=== PATIENT | male | born 1980 | race Caucasian/White ===

== ENCOUNTER 2017-08-12 16:29 | Outpatient (CLI) | payer OTHER ==
--- NOTE | 2017-08-12 22:03 | MRI Report ---
EXAM: LEFT KNEE MRI WITHOUT CONTRAST EXAM DATE: 08/12/2017 05:31 p.m. CLINICAL HISTORY: Left knee pain and locking. Previous meniscal tear surgery over 15 years ago. COMPARISON: None. TECHNIQUE: Multiplanar, multisequence T1-weighted and fluid-sensitive sequences of the knee without c ontrast. Other: None. FINDINGS: Bones and articular cartilage: Focal subcortical marrow edema and grade 2 chondromalacia at the media l aspect of the medial tibial plateau. Grade 2 chondromalacia at the medial femoral condyle. No acute fracture or bone lesions. Small marginal osteophytes at the medial femoral condyle, medial tibial pl ateau, and lateral tibial plateau. Medial Meniscus: Part of the posterior horn and body of the medial meniscus is absent which may be du e to a previous partial meniscectomy or degeneration. There is a horizontal tear within the remaining medial meniscus. Lateral Meniscus: Part of the posterior horn is absent which may be due to degeneration or a previous partial meniscectomy. No definite tear within the remaining lateral meniscus. Cruciate Ligaments: The anterior cruciate ligament is not seen as a distinct structure. The posterior cruciate ligament is intact. Collateral Ligaments: The medial collateral and lateral collateral ligamentous structures are intact. Tendons: The quadriceps, patellar, semimembranosus, and popliteus tendons are unremarkable. Musculature: No edema or fatty atrophy. Other: No effusion. Small Be's cyst. No loose bodies. The medial and lateral retinacula are intac t. Scar tissue at the infrapatellar fat pad. IMPRESSION: 1. 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 2. Partial absence of the posterior horn and body of the medial meniscus which may be due to a previo us partial meniscectomy or degeneration. There is a horizontal tear within the remaining medial menis cus. 3. Partial absence of the posterior horn lateral meniscus which may be due to degeneration or a previ ous partial meniscectomy. No definite tear within the remaining lateral meniscus. 4. Chronic ACL tear and ACL deficient knee. 5. Small Be's cyst. [facility] MUSCULOSKELETAL RADIOLOGY SECTION Referring Provider Line: [phone] SITE ID: [id number]
== END 2017-08-12 16:30 | disposition home or self-care (01) ==
LOC: DI 16:29
PROVIDERS: ATTEND Student in an Organized Health Care Education/Training Program
DX: M94.262 Chondromalacia, left knee (principal); S83.242A Other tear of medial meniscus, current injury, left knee, initial encounter; M71.22 Synovial cyst of popliteal space [Baker], left knee; S83.512A Sprain of anterior cruciate ligament of left knee, initial encounter

== ENCOUNTER 2019-09-06 07:30 | Inpatient (IN) | payer OTHER ==
[2019-10-03] MEDS ORDERED: CEFAZOLIN SODIUM IN 0.9 % NACL 0 GM/0 ML BAG IV ONE (06:30)
[2019-10-03] MEDS ORDERED: LACTATED RINGERS 1,000 ML IV ONE (06:45)
[2019-10-03 06:53] VITALS: BP 123/86
[2019-10-03] MEDS ORDERED: BUPIVACAINE 0.25% PF 30 ML VIAL ONE (07:09)
[2019-10-03] MEDS ORDERED: EPINEPHrine 1 MG/ML AMP ONE (07:09)
--- NOTE | 2019-10-03 07:20 | ANESTHESIA ---
Pre-Anesthesia VS, & Labs - Diagnosis genu varus - Procedure left high tibial osteotomy Vital Signs: Temp Pulse Resp BP Pulse Ox 36.4 C L 63 16 123/86 H 98 10/03/19 06:46 10/03/19 06:46 10/03/19 06:46 10/03/19 06:46 10/03/19 06:46 Height 5 ft 8 in Weight (kg) 78.02 kg - NPO >8 hours Home Medications and Allergies Home Medications: Ambulatory Orders Sertraline HCl [Zoloft] 150 mg PO DAILY 09/16/19 hydrOXYzine HCl [Hydroxyzine HCl] 25 mg PO ONCE 09/16/19 Sertraline HCl [Zoloft] 150 mg PO DAILY 09/16/19 hydrOXYzine HCl [Hydroxyzine HCl] 25 mg PO ONCE 09/16/19 Allergies/Adverse Reactions: Allergies Allergy/AdvReac Type Severity Reaction Status Date / Time No Known Drug Allergies Allergy Verified 10/03/19 07:04 Anes History & Medical History - Anesthetic History Anesthesia Complications: reports: Post-Operative Nausea/Vomiting - Medical History Cardiovascular: reports: None Pulmonary: reports: None Gastrointestinal: reports: None Urinary: reports: None Musculoskeletal: reports: Other Endocrine/Autoimmune: reports: None Skin: reports: None - Surgical History Eyes Ears Nose Throat (EENT): Tonsil/Adenoidectomy Orthopedic: Arthroscopic surgery Exam General: Alert Dental: WNL Mouth Opening: Greater than 4 Fingerbreadths Neck Mobility: Normal Mallampati classification: II Thyromental Distance: greater than 6 cm Respiratory: Lungs clear Cardiovascular: Regular rate, Normal S1, Normal S2 Mental/Cognitive Status: Alert/Oriented X3 Plan Anesthesia Type: General Consent for Procedure(s) Verified and Reviewed: Yes Code Status: Attempt Resuscitation ASA classification: 2-Mild systemic disease Is this case an emergency?: No
[2019-10-03] MEDS ORDERED: SCOPOLAMINE PATCH TOP ONE (07:25)
--- NOTE | 2019-10-03 10:15 | PHARMACY PROGRESS NOTE ---
- Best Possible Medication History Admit Date and Time: 10/03/19 0559 Processed by: Nursing Medication History completed: Yes As the person ultimately responsible for medication therapy, providers are able to order a medication from an existing home medication list in [facility] via the "Reconcile Routine" prior to Confirmation of that medication by client support coordinator. Such practice is discouraged except when the physician, in their clinical judgment, deems that a medical need exists for a medication without regard to previous use.
== END 2019-10-03 08:04 | disposition home or self-care (01) | DRG 566 ==
LOC: MS3 10-03 05:59
PROVIDERS: ADMIT Orthopaedic Surgery; ATTEND Orthopaedic Surgery
DX: M21.169 Varus deformity, not elsewhere classified, unspecified knee (principal); Z53.8 Procedure and treatment not carried out for other reasons

== ENCOUNTER 2019-10-15 11:02 | Inpatient (IN) | payer OTHER ==
[~2019-10-15 11:02] MED LIST: CEFAZOLIN SODIUM IN 0.9 % NACL 2 GM/100 ML BAG IV ONE; DEXAMETHASONE 4 MG/ML VIAL IVP ONE; HYDROmorphone 1 MG/ML CARPUJECT IVP ONE; LIDOCAINE 2% 10 ML MDV SUBQ ONE; MIDAZOLAM 2 MG/2 ML VIAL IVP ONE; ONDANSETRON 4 MG/2 ML VIAL IVP ONE; PROPOFOL 200 MG/20 ML VIAL IVP ONE; ROCURONIUM 50 MG/5 ML VIAL IVP ONE; ePHEDrine 50 MG/ML VIAL IVP ONE; fentaNYL 100 MCG/2 ML VIAL IVP ONE
[2019-10-15] MEDS ORDERED: LACTATED RINGERS 1,000 ML IV ONE ×2 (11:08→13:56)
[2019-10-15] MEDS ORDERED: EPINEPHrine 1 MG/ML AMP ONE (12:15)
[2019-10-15] MEDS ORDERED: SCOPOLAMINE PATCH TOP ONE (12:25)
[2019-10-15] MEDS: BUPIVACAINE 0.25% PF 30 ML VIAL ONE ×2 (13:37→16:41)
--- NOTE | 2019-10-15 19:48 | XRAY Report ---
Reason: left tibial osteotomy Procedure Date: 10/15/2019 Accession Number: [id number] / [id number] Procedure: FL - OR C-Arm Procedure CPT Code: Final Report FULL RESULT: EXAM: FLUOROSCOPIC GUIDANCE EXAM DATE: 10/15/2019 04:59 PM. CLINICAL HISTORY: Left tibial osteotomy. COMPARISON: None. FINDINGS: Several intraoperative fluoroscopic spot images demonstrate a tibial osteotomy. There is also moderate medial and mild lateral compartment osteoarthritis. No obvious displaced acute fracture. IMPRESSION: Fluoroscopic guidance provided for left tibial osteotomy.. Total fluoroscopy time: 0.7 minutes. Number of images: 20. RADIA
[2019-10-15] MEDS ORDERED: ceFAZolin 2 GM in SODIUM CHLORIDE 0.9% 100ML 100 ML IV ONE (20:18)
[2019-10-15] MEDS ORDERED: ACETAMINOPHEN 325 MG TABLET PO PRN (20:18)
[2019-10-15] MEDS ORDERED: ONDANSETRON 4 MG/2 ML VIAL IVP PRN (20:20)
[2019-10-15] MEDS ORDERED: SODIUM CHLORIDE FLUSH 0.9% 10 ML SYRINGE IVP PRN (20:22)
[2019-10-15] MEDS ORDERED: PROCHLORPERAZINE 10 MG/2 ML VIAL IVP PRN (20:22)
[2019-10-15] MEDS: oxyCODONE 5 MG TABLET PO PRN (20:43)
[2019-10-15] MEDS ORDERED: ACETAMINOPHEN 1,000 MG/100 ML 100 ML IV PRN (20:44)
[2019-10-15] MEDS: SODIUM CHLORIDE FLUSH 0.9% 10 ML SYRINGE IVP SCH (21:40)
[2019-10-16] MEDS: oxyCODONE 5 MG TABLET PO PRN ×5 (00:38→19:38)
[2019-10-16] MEDS ORDERED: ceFAZolin 2 GM in SODIUM CHLORIDE 0.9% 100ML 100 ML IV ONE (05:00)
[2019-10-16] MEDS ORDERED: DOCUSATE SODIUM 250 MG CAPSULE PO SCH (09:00)
[2019-10-16] MEDS: POLYETHYLENE GLYCOL 3350 17 GM PACKET PO SCH (09:45)
[2019-10-16] MEDS: SERTRALINE 50 MG TABLET PO SCH (10:29)
--- NOTE | 2019-10-16 12:07 | PHARMACY PROGRESS NOTE ---
- Best Possible Medication History Admit Date and Time: 10/15/19 1230 Processed by: Pharmacy Medication History completed: Yes Patient Interview: Completed Secondary Source(s): Insurance records As the person ultimately responsible for medication therapy, providers are able to order a medication from an existing home medication list in [facility] via the "Reconcile Routine" prior to Confirmation of that medication by cell support operator. Such practice is discouraged except when the physician, in their clinical judgment, deems that a medical need exists for a medication without regard to previous use.
[2019-10-16] MEDS: MORPHINE 2 MG/ML CARPUJECT IVP PRN ×3 (12:17→21:45)
[2019-10-16] MEDS: SODIUM CHLORIDE FLUSH 0.9% 10 ML SYRINGE IVP SCH ×4 (12:18→21:45)
[2019-10-17] MEDS: oxyCODONE 5 MG TABLET PO PRN ×4 (00:23→12:21)
[2019-10-17] MEDS: SODIUM CHLORIDE FLUSH 0.9% 10 ML SYRINGE IVP SCH (00:27)
--- NOTE | 2019-10-17 07:52 | PROVIDER PROGRESS NOTE ---
Subjective - General Admit Date: 10/15/19 Procedure Date: 10/15/19 Post Op Days: 2 Procedure Performed: Left proximal tibia valgus producing osteotomy. Left knee arthroscopy - Review of Systems Wound/Incisions: positive: Dressing dry and intact General: positive: No symptoms HEENT: positive: No symptoms Pulmonary: positive: No symptoms Cardiovascular: positive: No symptoms Gastrointestinal: positive: No symptoms Genitourinary: positive: Retention (Improved. Now urinating without issue) Musculoskeletal: positive: Other (Left leg pain is tolerable with PO medications. Pain is at the surgical site. There is no compartment syndrome type pain.) Skin: positive: No symptoms - Other Other Information/Narrative: S: POD #2 s/p L proximal tibial osteotomy and knee arthroscopy with debridement. He has been in the hospital for pain control and relative urinary retention. His urinary hesitency has resolved. His pain continues but is tolerable with oral medications. He has been crutching around the room. He denies f/c/s. His contralateral limb has been itchy. O: Well appearing in no distress. His dressing is intact without drainage. The HAILEY wrap is in place. Compartments are soft and nontender to the touch. There is no calf pain with passive stretch of the compartments. He has active ROM of the ankle that is normal. Knee brace is on and functioning. There is normal sensation in the saphenous, sural, superficial peroneal distributions. There is a 2+ dorsalis pedis pulse. A: Doing well postop day 2. He is now stabilized for discharge home. P: Discharge to home today. Discharge instructions have the details of his postoperative plan. His postoperative visit is on 29 October. Objective - Patient Data Vital Signs: Vital Signs x48h Temp Pulse Resp BP Pulse Ox 10/17/19 00:00 37.3 C 77 18 139/74 H 92 Weight: Weight 10/15/19 10/16/19 10/17/19 23:59 23:59 23:59 Weight (kg) 78 kg Intake & Output: Intake and Output Totals x24h 10/15/19 10/16/19 10/17/19 23:59 23:59 23:59 Intake Total 1750 3100 490 Output Total 200 4000 1500 Balance 1550 -900 -1010 - Current Medications Current Medications: Current Medications Generic Name Dose Route Start Last Admin Trade Name Freq PRN Reason Stop Dose Admin Morphine Sulfate 2 mg 10/15/19 20:20 10/16/19 21:45 Morphine (Carpuject) IVP 2 mg Q2HR PRN Administration PAIN Oxycodone HCl 10 mg 10/15/19 20:21 10/17/19 05:03 Roxicodone PO 10 mg Q4HR PRN Administration PAIN Polyethylene Glycol 17 gm 10/16/19 09:00 10/16/19 09:45 Miralax PO Not Given DAILY FIFI Sertraline HCl 150 mg 10/16/19 11:00 10/16/19 10:29 Zoloft PO 150 mg DAILY FIFI Administration Sodium Chloride 10 ml 10/15/19 21:00 10/17/19 00:27 Normal Saline Flush 0.9% IVP 10 ml PRN FIFI Administration
[2019-10-17 08:02] VITALS: BP 136/91
[2019-10-17] MEDS: POLYETHYLENE GLYCOL 3350 17 GM PACKET PO SCH (08:13)
[2019-10-17] MEDS: SERTRALINE 50 MG TABLET PO SCH (08:19)
[2019-10-17] MEDS ORDERED: diphenhydrAMINE 25 MG CAPSULE PO ONE (10:00)
[2019-10-17] MEDS: MORPHINE 2 MG/ML CARPUJECT IVP PRN (14:35)
--- NOTE | 2019-10-25 10:08 | DISCHARGE SUMMARY ---
"Discharge Summary Admit Date: 10/15/19 Discharge Date: 10/17/19 Discharging Provider: Eric Delgado Code Status: Attempt Resuscitation Condition at Discharge: Good - DIAGNOSES Admission Diagnoses: Left knee osteoarthritis. Left genu varus Discharge Diagnoses with Status of Each Condition: Same as admission. Stable diagnoses - HPI History of Present Illness: Please see H&P that is uploaded. Briefly, he is a healthy individual who undewent a left knee scope and proximal tibia osteotomy to treat varus knee deformity and medial sided arthritis. - CONSULTS | PROCEDURES Consultations: None Procedures: Left knee arthroscopy left knee valgus producing proximal tibia osteotomy - HOSPITAL COURSE Hospital Course: Uncomplicated. He was observed overnight. The next day he continued to have pain that required IV medications and had some urinary hesitency. He was therefore admitted for an additional evening. His pain and urinary issues improved and he was discharged the next day. - ALLERGIES Allergies/Adverse Reactions: Allergies Allergy/AdvReac Type Severity Reaction Status Date / Time No Known Drug Allergies Allergy Verified 10/03/19 07:04 - MEDICATIONS Home Medications: Ambulatory Orders Medication Instructions Recorded Confirmed Sertraline HCl [Zoloft] 150 mg PO DAILY 09/16/19 10/16/19 Aspirin EC [Ecotrin] 325 mg PO DAILY 10/16/19 10/16/19 hydrOXYzine HCL [Hydroxyzine HCl] 25 mg PO DAILY PRN 10/16/19 10/16/19 - PHYSICAL EXAM AT DISCHARGE General Appearance: positive: No acute distress Peripheral Pulses: positive: 2+ Skin: positive: Color nml (dressing intact) Extremities: positive: Joint swelling, Other (Knee effusion present. Soft tissue swelling at the surgery site) Neurologic/Psychiatric: positive: Oriented x3 - DIAGNOSTIC IMAGING Diagnostic Imaging Results: Other (intraoperative fluoro as expected) - FOLLOW UP Follow Up: [address] Delgado - TIME SPENT Time Spent in Discharge (Minutes): 30"
== END 2019-10-17 15:15 | disposition home or self-care (01) | DRG 489 ==
LOC: MS2 11:02 → UNDOADMIN 11:02 → MS2 12:30
PROVIDERS: ADMIT Orthopaedic Surgery; ATTEND Orthopaedic Surgery
PROC: 0QUH07Z Supplement Left Tibia with Autologous Tissue Substitute, Open Approach (ICD-10-PCS; 2019-10-15)
PROC: 0QSH04Z Reposition Left Tibia with Internal Fixation Device, Open Approach (ICD-10-PCS; principal; 2019-10-15 12:30)
PROC: 0SBD4ZZ Excision of Left Knee Joint, Percutaneous Endoscopic Approach (ICD-10-PCS; 2019-10-15 12:30)
DX: M21.162 Varus deformity, not elsewhere classified, left knee (principal); M23.232 Derangement of other medial meniscus due to old tear or injury, left knee; M94.262 Chondromalacia, left knee; M17.12 Unilateral primary osteoarthritis, left knee; M23.8X2 Other internal derangements of left knee; M23.42 Loose body in knee, left knee; G89.18 Other acute postprocedural pain; R39.11 Hesitancy of micturition; Z87.891 Personal history of nicotine dependence; Z79.82 Long term (current) use of aspirin